=== PATIENT | female | born 1965 ===

== ENCOUNTER 2020-07-08 16:47 | Outpatient (REF) | payer MEDICAID, SELFPAY | END 2020-07-08 16:48 | disposition home or self-care (01) | LOC: HO.SCI 16:47 | PROVIDERS: Visit Provider Internal Medicine | DX: Z13.89 Encounter for screening for other disorder (principal) ==

== ENCOUNTER 2021-06-16 13:48 | Outpatient (REF) | payer MEDICAID, SELFPAY ==
--- NOTE | ~2021-06-16 | MM_ITS ---
EXAMINATION: MM DIAGNOSTIC DIGITAL BREAST TOMOSYNTHESIS, BILATERAL US DIAGNOSTIC ULTRASOUND BREAST, LEFT CLINICAL INFORMATION: Pain lower left breast near inframammary fold. Also ridge of hardness sensed by patient in this area. Age 56. Prior outside imaging from the arch date currently unavailable. No known family history breast cancer. The lifetime risk of breast cancer based on the Tyrer-Cuzick Model is 5%. COMPARISON: None. TECHNIQUE: Digital breast tomosynthesis is performed in both the craniocaudal and mediolateral oblique views along with computer-aided detection (CAD). Synthesized 2D images are generated from the tomosynthesis. Ultrasound left breast is targeted to the area of clinical concern posterior inferior and inferior medial left breast. Patient is able to point to the area of concern at time of imaging. Grayscale imaging and color Doppler are performed without and with harmonics. FINDINGS: The breasts are heterogeneously dense, which may obscure small masses (ACR BI-RADS breast composition Category c). There are no significant masses, abnormal calcifications, or other abnormalities. There is no skin thickening or coarsening of the Myron's ligaments. The inframammary fold is unremarkable. The axilla are unremarkable. Ultrasound demonstrates no cystic or solid mass or architectural abnormality. No skin thickening or edema tracking in soft tissue planes. No hyperemia. No focal duct ectasia. Results are discussed with the patient at time of visit with assistance of an mechanical applications engineer. If prior out of state mammography is made available, we will be able to make comparison in an addendum report. If clinically indicated, further evaluation may be considered with surgical consult. MM/MM tomosynthesis diagnostic BI IMPRESSION: No mammographic evidence of malignancy or inflammatory changes. Unremarkable targeted left breast ultrasound. ASSESSMENT: BI-RADS 1: Negative RECOMMENDATION: 1. Patient should be managed based on the clinical impression. If clinically indicated, further evaluation may be considered with surgical consult. Decision to proceed with biopsy should be based on clinical grounds and degree of clinical concern. 2. Radiology department staff will attempt to retrieve prior [id number] mammography to allow for comparison in an addendum report. 3. Otherwise, routine annual screening mammography. This patient's information was entered into a reminder system with a target due date for their next mammogram.
== END 2021-06-16 13:49 | disposition home or self-care (01) ==
LOC: HO.MAMMO 13:48
PROVIDERS: Visit Provider Advanced Practice Midwife
DX: N64.4 Mastodynia (principal)
CPT/HCPCS: 76642; 77062; 77066

== ENCOUNTER → 2021-11-25 14:25 | Outpatient (BNVA) | payer MEDICAID, SELFPAY | PROVIDERS: PCP Internal Medicine; Visit Provider Nurse Practitioner Family | DX: Z12.11 Encounter for screening for malignant neoplasm of colon (principal) | CPT/HCPCS: 99202 ==

== ENCOUNTER 2022-02-02 08:50 | Outpatient (REF) | payer MEDICAID, SELFPAY ==
--- NOTE | 2022-02-02 08:56 | EMG_ITS ---
Bilateral median and ulnar motor and sensory studies were performed. Bilateral radial sensory studies were performed and paraspinal muscles were tested with a needle. IMPRESSION: 1. 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 2. Mild bilateral ulnar neuropathy across cubital tunnel. MD DOMENICO Chavira/ALINE / [phone]
== END 2022-02-02 08:51 | disposition home or self-care (01) ==
LOC: HO.NEURO 08:50
PROVIDERS: PCP Internal Medicine; Visit Provider Internal Medicine
DX: G56.03 Carpal tunnel syndrome, bilateral upper limbs (principal)
CPT/HCPCS: 95886; 95911

== ENCOUNTER → 2022-06-20 14:45 | Outpatient (BNVA) | payer MEDICAID, SELFPAY | PROVIDERS: PCP Internal Medicine; Visit Provider Orthopaedic Surgery | DX: G56.03 Carpal tunnel syndrome, bilateral upper limbs (principal); G56.23 Lesion of ulnar nerve, bilateral upper limbs | CPT/HCPCS: 99202 ==

== ENCOUNTER 2022-09-25 10:02 | Outpatient (REF) | payer MEDICAID, SELFPAY ==
[2022-09-25 14:29] LABS: MANUAL DIFF FLAG NO
[2022-09-25 14:30] LABS: Basophils Percent Auto 0.4 % (0-2); Eosinophils Absolute Auto 0.1 X10*3/uL (0.0-0.4); Eosinophils Percent Auto 0.8 % (0-4); Hematocrit 41.4 % (37.0-47.0); Hemoglobin 13.7 g/dl (12.0-16.0); Imm Gran Abs Auto 0.03 X10*3/uL (0.00-0.03); Imm Gran Pct Auto 0.4 % (0.0-0.4); Lymphocytes Absolute Auto 1.9 X10*3/uL (1.2-4.9); Lymphocytes Percent Auto 21.8 % (20-40); Mean Corpuscular HGB Conc 33.1 g/dl (31.0-35.0); Mean Corpuscular Hemoglobin 31.3 pg (27.0-33.0); Mean Corpuscular Volume 94.5 fL (80.0-98.0); Mean Platelet Volume 11.8 fL (9.4-12.3); Monocytes Absolute Auto 0.3 X10*3/uL (0.1-1.2); Monocytes Percent Auto 3.3 % (2-11); Neutrophils Absolute Auto 6.3 x10*3/uL (2.0-8.3); Neutrophils Percent Auto 73.3 % (45-73); Platelet Count 199 X10*3/uL (160-400); Red Blood Count 4.38 X10*6/uL (4.20-5.50); Red Cell Distribution Width 13.1 % (11.0-16.0); White Blood Count 8.6 X10*3/uL (4.8-10.8)
[2022-09-25 14:45] LABS: Estimated Average Glucose 111 mg/dL; Hemoglobin A1c % 5.5 %
[2022-09-25 15:39] LABS: Alanine Aminotransferase 25 U/L (0-31); Albumin Level 4.5 g/dL (3.5-5.0); Alkaline Phosphatase 89 U/L (39-117); Anion Gap 18 (12-20); Aspartate Amino Transferase 23 U/L (5-31); Bilirubin Total 0.3 mg/dL (0.0-1.0); Blood Urea Nitrogen 32 mg/dL (9-16); Calcium 10.2 mg/dL (8.4-10.2); Carbon Dioxide 23 mmol/L (22-29); Chloride 105 mmol/L (96-108); Cholesterol 157 mg/dL; Estimated Glomerular Filt Rate 50; Glucose Fasting 101 mg/dL (60-99); HDL Cholesterol 55 mg/dL; LDL Cholesterol Calculated 87 mg/dl; Potassium 4.9 mmol/L (3.3-5.1); Sodium 141 mmol/L (135-145); Total Protein 7.6 g/dL (6.5-8.0); Triglycerides 76 mg/dL
[2022-09-25 15:53] LABS: TSH reflex Free T4 1.45 uIU/mL (0.32-4.0)
[2022-09-26 04:13] LABS: ~HepC Num1 0.09 S/CO (0.00-0.79); ~Hepatitis C Antibody Nonreactive (Nonreactive)
[2022-09-27 17:24] LABS: HIV RNA PCR Qn Copies Not Detected Copies/mL; HIV RNA PCR Qn Log Copies Not Detected Log cps/mL
[2022-10-03 11:58] LABS: Plasma Renin Activity 1.89 ng/mL/h (0.25-5.82)
== END 2022-09-25 10:03 | disposition home or self-care (01) ==
LOC: HO.CHCLDS 10:02
PROVIDERS: PCP Internal Medicine; Referring Provider Internal Medicine; Visit Provider Family Medicine
DX: I10 Essential (primary) hypertension (principal); E78.2 Mixed hyperlipidemia
CPT/HCPCS: 36415; 80053; 80061; 82088; 83036; 84443; 85025; 86803; 87536; 87900

== ENCOUNTER 2023-04-10 09:25 | Outpatient (AMB) | payer MEDICAID, SELFPAY ==
--- NOTE | 2023-04-10 09:59 | A.OFFVIS_ITS ---
Intake Vital Signs 04/10/23 10:05 Height 5 ft 4 in Weight 164 lb BMI 28.1 Intake Visit Reasons: Carpal tunnel syndrome, B/L upper limbs Intake Note: Brii 58 yr old female presents today for to discuss surgery for her left hand. States she was suppose to have CTR last year but canceled due to work. Currently state she is not working and would like to have surgery. Also states she is having locking of her left middle finger and would like to have trigger release as well. Allergies aspirin Allergy (Severe, Verified 04/10/23 10:05) Facial Swelling pencillian Allergy (Severe, Uncoded 04/10/23 10:05) Hives HPI Carpal tunnel syndrome, B/L upper limbs HPI Details Brii is a 58 year old right hand dominant Citizen Of [place] speaking woman who returns to discuss her bilateral carpal tunnel syndrome, as well as new complaint of left middle finger locking. She was initially scheduled for a carpal tunnel release last year, but cancelled this due to work. She says she is no longer working at [employer] and would like to discuss surgery. She complains of dense numbness in the median nerve distribution bilaterally, with normal sensation to the small fingers bilaterally. She says her numbness is worse at night and wakes her up, along with some pain and stiffness. She has a Hx of previous blood clots sometime last year, following a meniscus repair surgery. She says she cannot take aspirin and was not given any other medication following her surgery to prevent clots. [facility]LY [facility] Surgical History Hx of left knee surgery Hx of section Family History Mother HTN (hypertension) Diabetes Father Diabetes HTN (hypertension) Social History Household Members: Family Alcohol intake: current Patient Tobacco Use Status: Former Tobacco user Current occupational status: employed Current occupation: [employer]/right hand Review of Systems Const All systems reviewed & are unremarkable except as noted in HPI and below Physical Exam Vital Signs: BMI result Body Mass Index 28.1 Const General: no acute distress and alert Orientation/consciousness: patient oriented x3 Neuro General: patient oriented x3 Extrem Other: Evaluation of Left Upper Extremity: The patient is alert, oriented, and in no acute distress Neuro: Dense numbness in the median nerve distribution. Normal sensation in the ulnar nerve distribution. No thenar or intrinsic wasting Weak APB muscle belly firing on the left, but present Vascular: Cap refill brisk ROM: She can make a fist and extend all her digits Visible and palpable locking & catching of the left middle finger Tender over the a1 frida of the left middle finger Nerve Conduction study: IMPRESSION:? 1. 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 2. Mild bilateral ulnar neuropathy across cubital tunnel. Kellen Em MD 02/02/2022 Psych Appearance: grossly normal Affect: normal affect Attitude: cooperative Assessment & Plan Assessment & Plan (1) Carpal tunnel syndrome of right wrist: Code(s): G56.01 - Carpal tunnel syndrome, right upper limb (2) Carpal tunnel syndrome of left wrist: Code(s): G56.02 - Carpal tunnel syndrome, left upper limb (3) Cubital tunnel syndrome on right: Code(s): G56.21 - Lesion of ulnar nerve, right upper limb (4) Cubital tunnel syndrome on left: Code(s): G56.22 - Lesion of ulnar nerve, left upper limb (5) Trigger finger, left middle finger: Code(s): M65.332 - Trigger finger, left middle finger Plan Assessment & Plan: 1. Left Carpal tunnel syndrome, severe With dense numbness, symptoms worse at night 2. Left middle finger trigger finger I educated her about these conditions I discussed treatment options I recommend surgery, and she is in agreement The risks and benefits of operative treatment were discussed with the patient and the patient wishes to proceed with surgery. These risks include, but are not limited to risk of damage to blood vessels, nerves, tendons, infection, recurrence, incomplete relief of preoperative symptoms, persistent pain, possible need for further surgery and the risks associated with regional blocks and anesthesia. The plan is to take the patient to the operating room sometime in the next few weeks for the following procedures: 1. Left carpal tunnel release, under local 1. Left middle finger trigger release, under local All of the preoperative paperwork including the consent was filled out today. All the patient's questions were answered. The patient understands that they will be contacted by our production scheduler soon to schedule this procedure She denies Diabetes, blood thinners, asthma, heart, lung, kidney issues She says she has a Hx of previous blood clots, and used to take Eliquis, but she is no longer on any blood thinner medication 3. Right Carpal tunnel syndrome, severe With dense numbness, symptoms worse at night She can follow up to discuss treatment for her right side at her first post-op appointment. 4. Right Cubital tunnel syndrome, mild 5. Left Cubital tunnel syndrome, mild Normal sensation in the ulnar nerve distribution today No complaints of numbness in the small fingers I educated her about this issue. This will be managed conservatively for now. Scribed for Rose Douglas MD by Kenrick Sharpe, medical certification specialist, on 04/10/23 at 10:30 AM, EST. Coding Level of Care Code Est Pt Level 4 (87018) Diagnoses Carpal tunnel syndrome of right wrist G56.01 Carpal tunnel syndrome of left wrist G56.02 Cubital tunnel syndrome on right G56.21 Cubital tunnel syndrome on left G56.22 Trigger finger, left middle finger M65.332
[2023-04-10 10:05] VITALS: BMI 28.1
== END 2023-04-10 10:41 | disposition home or self-care (01) ==
PROVIDERS: PCP Internal Medicine; Visit Provider Orthopaedic Surgery
DX: G56.03 Carpal tunnel syndrome, bilateral upper limbs (principal); G56.23 Lesion of ulnar nerve, bilateral upper limbs; M65.332 Trigger finger, left middle finger
CPT/HCPCS: 99214

== ENCOUNTER → 2023-04-10 09:25 | Outpatient (BNVA) | payer MEDICAID, SELFPAY | PROVIDERS: PCP Internal Medicine; Visit Provider Orthopaedic Surgery | DX: G56.03 Carpal tunnel syndrome, bilateral upper limbs (principal); G56.23 Lesion of ulnar nerve, bilateral upper limbs; M65.332 Trigger finger, left middle finger | CPT/HCPCS: 99212 ==

== ENCOUNTER 2023-05-15 11:42 | Outpatient (REF) | payer MEDICAID, SELFPAY ==
--- NOTE | ~2023-05-15 | MM_ITS ---
EXAMINATION: MM SCREENING DIGITAL BREAST TOMOSYNTHESIS, BILATERAL CLINICAL INFORMATION: Screening. Asymptomatic. COMPARISON: Mammography: This study is compared with prior exams dating back to 2021. TECHNIQUE: Digital breast tomosynthesis is performed in both the craniocaudal and mediolateral oblique views along with computer-aided detection (CAD). Synthesized 2D images are generated from the tomosynthesis. FINDINGS: The breasts are heterogeneously dense, which may obscure small masses (ACR BI-RADS breast composition Category c). There are no significant masses, abnormal calcifications, or other abnormalities. MM/MM tomosynthesis screening BI IMPRESSION: No mammographic evidence of malignancy. ASSESSMENT: BI-RADS BI-RADS 1 - Negative RECOMMENDATION: Routine annual mammography screening. 1 year F/U This examination should not preclude the clinical evaluation of a suspicious palpable abnormality. This patient's information was entered into a reminder system with a target due date for their next mammogram.
== END 2023-05-15 11:43 | disposition home or self-care (01) ==
LOC: HO.MAMMO 11:42
PROVIDERS: PCP Internal Medicine; Visit Provider Internal Medicine
DX: Z12.31 Encounter for screening mammogram for malignant neoplasm of breast (principal)
CPT/HCPCS: 77063; 77067

== ENCOUNTER → 2023-05-15 12:00 | Outpatient (BNV) | payer MEDICAID, SELFPAY | PROVIDERS: PCP Internal Medicine; Visit Provider Radiology Diagnostic Radiology | DX: Z12.31 Encounter for screening mammogram for malignant neoplasm of breast (principal) | CPT/HCPCS: 77063; 77067 ==

== ENCOUNTER 2023-06-18 06:32 | Day surgery (SDC) | payer MEDICAID, SELFPAY ==
[2023-06-18 06:49] VITALS: BMI 29.2
[2023-06-18 07:01] VITALS: BP 139/67; PULSE 63; RESP 18; TEMP 36.2; O2SAT 97
--- NOTE | 2023-06-18 07:58 | MHC.SHP ---
Pre-Procedural Eval Section A - 24 Hr Update-Section A only Date of Service: 06/18/23 Section B - Complete if H&P > 30 days Chief Complaint: carpal tunnel release,trigger finger release Allergies: Allergies Allergy/AdvReac Type Severity Reaction Status Date / Time aspirin Allergy Severe Facial Verified 04/10/23 10:05 Swelling pencillian Allergy Severe Hives Uncoded 04/10/23 10:05 Exam Exam Comment: Left carpal tunnel syndrome and left middle finger trigger finger Plan Diagnosis/Plan: Unchanged I have reviewed the history and physical and performed a pertinent physical examination on my patient. No changes have occurred unless specified. Time Spent With Patient Time: Total time managing care of this patient today ____ minutes.
--- NOTE | 2023-06-18 07:59 | W.PM.OPN ---
Operative Note Operative Note Date of Service: 06/18/23 Narrative: Preop diagnosis: 1. Left Carpal tunnel syndrome 2. Left middle finger trigger finger Postop diagnosis: same Procedure: 1. Left Carpal tunnel release 2. Left middle finger A1 frida release Surgeon: Rose Douglas MD Anesthesia: local block using 1% lidocaine with epinephrine Findings: Thickened transverse carpal ligament. EBL: Less than 5 mL Specimens: None Complications: None Disposition: Brought to recovery room in stable condition Plan: Follow-up for 10-14 days for wound check and suture removal Indications: The patient is 58 years old, with left carpal tunnel syndrome and a left middle finger trigger finger that have been unresponsive to nonoperative management. The risks and benefits of operative treatment including but not limited to risk of damage to blood vessels, nerves, tendons, infection, persistent pain, persistent symptoms, or possible need for additional surgery were discussed with the patient and the patient wishes to proceed with surgery. Procedure: Once consent was obtained a local block was performed using a combination of 1% lidocaine with epinephrine. The patient was then brought back to the operating suite and placed on the operative table in supine position. The left upper extremity was prepped and draped in a standard surgical fashion. Once assured that we had a good block, a 1.5 cm oblique incision was made centered over the A1 frida of the left middle finger . The incision was made through the skin to the subcutaneous tissues using a #15 blade. Careful dissection was made down to the level of the A1 frida using tenotomy scissors, with care being taken to protect the nearby neurovascular structures. A longitudinal incision was made in the A1 frida 1st using a #15 blade, then using tenotomy scissors under direct visualization. The A1 frida was noted to be thickened. Following our A1 frida release, we no longer saw any locking or catching of the digit with flexion and extension. Once assured that we had a good block, a 2.0 cm longitudinal incision was made centered over the left carpal tunnel. The incision was made through the skin to the subcutaneous tissues using a #15 blade. Dissection was made down to the level of the transverse carpal ligament with care being taken to protect the palmar cutaneous nerve. Once the transverse carpal ligament was clearly visualized, a longitudinal incision was made in the transverse carpal ligament 1st using a #15 blade, then using tenotomy scissors under direct visualization. Care was taken to look for and protect the motor branch of the median nerve when seen in this area. Once satisfied with our carpal tunnel release the wound was copiously irrigated with normal saline and hemostasis was obtained with a brief period of local pressure. The skin edges were reapproximated with some 5.0 nylon suture material and a sterile dressing was applied. The patient appears to have tolerated the procedure well and with no complications. All digits were well vascularized at the conclusion of the case.
[2023-06-18 09:56] VITALS: BP 144/86; PULSE 50; RESP 16; O2SAT 96
== END 2023-06-18 09:57 | disposition home or self-care (01) ==
PROVIDERS: PCP Internal Medicine; Visit Provider Orthopaedic Surgery
PROC: (CPT 64721; principal; 2023-06-18 09:10)
PROC: (CPT 26055; 2023-06-18 09:10)
DX: G56.02 Carpal tunnel syndrome, left upper limb (principal); M65.332 Trigger finger, left middle finger; Z88.0 Allergy status to penicillin; Z88.8 Allergy status to other drugs, medicaments and biological substances; R20.0 Anesthesia of skin; Z98.890 Other specified postprocedural states; Z87.891 Personal history of nicotine dependence
CPT/HCPCS: 64721; 26055; J0171

== ENCOUNTER → 2023-06-18 06:32 | Outpatient (BNV) | payer MEDICAID, SELFPAY | PROVIDERS: PCP Internal Medicine; Visit Provider Orthopaedic Surgery | DX: G56.02 Carpal tunnel syndrome, left upper limb (principal); M65.332 Trigger finger, left middle finger | CPT/HCPCS: 26055; 64721 ==

== ENCOUNTER 2023-07-03 10:57 | Outpatient (REF) | payer MEDICAID, SELFPAY ==
[2023-07-03 15:20] LABS: Alanine Aminotransferase 30 U/L (0-31); Albumin Level 4.2 g/dL (3.5-5.0); Alkaline Phosphatase 115 U/L (39-117); Anion Gap 14 (12-20); Aspartate Amino Transferase 25 U/L (5-31); Bilirubin Total 0.2 mg/dL (0.0-1.0); Blood Urea Nitrogen 28 mg/dL (9-16); Calcium 9.9 mg/dL (8.4-10.2); Carbon Dioxide 24 mmol/L (22-29); Chloride 106 mmol/L (96-108); Cholesterol 201 mg/dL (<200); Estimated Glomerular Filt Rate 45; Glucose Random 106 mg/dL (60-115); HDL Cholesterol 50 mg/dL (>40); LDL Cholesterol Calculated 121 mg/dL (<100); Potassium 4.3 mmol/L (3.3-5.1); Sodium 140 mmol/L (135-145); Total Protein 7.5 g/dL (6.5-8.0); Triglycerides 153 mg/dL (<150)
== END 2023-07-03 10:58 | disposition home or self-care (01) ==
LOC: HO.CHCLDS 10:57
PROVIDERS: Visit Provider Internal Medicine
DX: I10 Essential (primary) hypertension (principal); E78.2 Mixed hyperlipidemia; G56.01 Carpal tunnel syndrome, right upper limb; G56.21 Lesion of ulnar nerve, right upper limb; Z98.890 Other specified postprocedural states; Z86.69 Personal history of other diseases of the nervous system and sense organs; Z87.39 Personal history of other diseases of the musculoskeletal system and connective tissue
CPT/HCPCS: 36415; 80053; 80061; 99212

== ENCOUNTER 2023-07-03 11:19 | Outpatient (AMB) | payer MEDICAID, SELFPAY ==
--- NOTE | 2023-07-03 11:33 | A.OFFVIS_ITS ---
Vital Signs 07/03/23 11:35 Height 5 ft 4 in Weight 160 lb BMI 27.5 Handedness Left Intake Visit Reasons: PO-Lt CTR, Lt MF Trigger 06/18/23 Intake Note: Brii ia a 58 year old female who presents today for her PO visit of left CTR & left MF Trigger 06/18/23. States CTS have improved and her finger is no longer locking. She is unable to make a full closed fist due to limited ROM. Mild swelling and discomfort but doing well over all. Allergies aspirin Allergy (Severe, Verified 04/10/23 10:05) Facial Swelling Penicillins Allergy (Intermediate, Verified 07/03/23 11:36) Hives pencillian Allergy (Severe, Uncoded 04/10/23 10:05) Hives HPI HPI PO-Lt CTR, Lt MF Trigger 06/18/23: Details: Brii is a 58 year old right hand dominant Romans[place] speaking woman who returns S/P left carpal tunnel release & left middle finger trigger release, DOS: 06/18/23. She says she is doing well, her sensation is normal and she no longer has any locking or catching. She continues to have dense numbness in the right median nerve distribution. Normal sensation to the small fingers bilaterally. PFSH Surgical History Hx of left knee surgery Hx of section Family History Mother HTN (hypertension) Diabetes Father Diabetes HTN (hypertension) Social History Household Members: Family Alcohol intake: current Comment: counts correct Patient Tobacco Use Status: Former Tobacco user Current occupational status: employed Current occupation: [employer]/right hand Review of Systems Const All systems reviewed & are unremarkable except as noted in HPI and below Physical Exam Vital Signs: BMI result Body Mass Index 27.5 Const General: no acute distress and alert Orientation/consciousness: patient oriented x3 Neuro General: patient oriented x3 Extrem Other: The patient was alert oriented and in no acute distress The incision is healing well with no erythema drainage or evidence of infection. Sutures removed and Steri-Strips applied She can make a fist and extend all her digits No locking or catching She reports more normal sensation in the median nerve distribution of her left hand following her carpal tunnel release. Regarding her right hand: Dense numbness in the right median nerve distribution Normal sensation in the ulnar nerve distribution bilaterally Cap refill is brisk Nerve Conduction study: IMPRESSION:? 1. 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 2. Mild bilateral ulnar neuropathy across cubital tunnel. Kellen Em MD 02/02/2022 Psych Appearance: grossly normal Affect: normal affect Attitude: cooperative Assessment & Plan Assessment & Plan (1) Carpal tunnel syndrome of right wrist: Code(s): G56.01 - Carpal tunnel syndrome, right upper limb Category: Medical (2) Carpal tunnel syndrome of left wrist: Code(s): G56.02 - Carpal tunnel syndrome, left upper limb Category: Medical (3) Cubital tunnel syndrome on right: Code(s): G56.21 - Lesion of ulnar nerve, right upper limb Category: Medical (4) Cubital tunnel syndrome on left: Code(s): G56.22 - Lesion of ulnar nerve, left upper limb Category: Medical (5) Trigger finger, left middle finger: Code(s): M65.332 - Trigger finger, left middle finger Category: Medical Plan Assessment & Plan: 1. Left Carpal tunnel syndrome, S/P release Pre-operatively with dense numbness, symptoms worse at night Now , she says with normal sensation 2. Left middle finger trigger finger, S/P release DOS: 06/18/23 The patient appears to be doing well post-operatively I educated her about the post-operative course I explained the signs and symptoms of infection, if the patient develops any new or worsening erythema, drainage, pain, or warmth they should contact the clinic or attend the ED. I discussed activity modifications, she is to lift nothing heavier than a cellphone for the next two weeks She will perform gentle ROM exercises at home She should avoid any underwater activities for the next 5 days She should gently massage about the incision site to reduce the risk of hypersensitivity 3. Right Carpal tunnel syndrome, severe With dense numbness, symptoms worse at night I educated her about this condition I discussed treatment options I recommend surgery, and she is in agreement The risks and benefits of operative treatment were discussed with the patient and the patient wishes to proceed with surgery. These risks include, but are not limited to risk of damage to blood vessels, nerves, tendons, infection, recurrence, incomplete relief of preoperative symptoms, persistent pain, possible need for further surgery and the risks associated with regional blocks and anesthesia. The plan is to take the patient to the operating room sometime in the next few weeks for the following procedures: 1. Right carpal tunnel release, under local All of the preoperative paperwork including the consent was filled out today. All the patient's questions were answered. The patient understands that they will be contacted by our supervisor rework soon to schedule this procedure She denies Diabetes, blood thinners, asthma, heart, lung, kidney issues She says she has a Hx of previous blood clots, and used to take Eliquis, but she is no longer on any blood thinner medication 4. Right Cubital tunnel syndrome, mild 5. Left Cubital tunnel syndrome, mild Normal sensation in the ulnar nerve distribution today No complaints of numbness in the small fingers I educated her about this issue. This will be managed conservatively for now. Scribed for Rose Douglas MD by Kenrick Sharpe adjunct faculty for medical terminology, on 07/03/23 at 11:45 AM, EST. Scribe Plan - Not visible on output: Scribed for Rose Douglas MD by Kenrick Sharpe adjunct faculty for medical terminology, on [ ] at [ ], EST. Coding Level of Care Code Est Pt Level 4 (88850) Diagnoses Carpal tunnel syndrome of right wrist G56.01 Carpal tunnel syndrome of left wrist G56.02 Cubital tunnel syndrome on right G56.21 Cubital tunnel syndrome on left G56.22 Trigger finger, left middle finger M65.332
[2023-07-03 11:35] VITALS: BMI 27.5
== END 2023-07-03 11:55 | disposition home or self-care (01) ==
PROVIDERS: PCP Internal Medicine; Visit Provider Orthopaedic Surgery
DX: G56.03 Carpal tunnel syndrome, bilateral upper limbs (principal); G56.23 Lesion of ulnar nerve, bilateral upper limbs; M65.332 Trigger finger, left middle finger
CPT/HCPCS: 99214

== ENCOUNTER 2023-08-27 08:07 | Day surgery (SDC) | payer MEDICAID, SELFPAY ==
[2023-08-27 09:20] VITALS: BMI 28.0
--- NOTE | 2023-08-27 10:56 | MHC.SHP ---
Pre-Procedural Eval Section A - 24 Hr Update-Section A only Date of Service: 08/27/23 The patient is an INPATIENT: No Changes since office visit: No Cold of Flu in the past 2 weeks, No New Medical Problems, No Changes in Medication and No Patient answered all questions The patient has been examined within 24 hours of the surgical procedure. The History & Physical has been completed within 30 days and I have reviewed it.: Yes Section B - Complete if H&P > 30 days Chief Complaint: Carpal tunnel syndrome, right upper limb Allergies: Allergies Allergy/AdvReac Type Severity Reaction Status Date / Time aspirin Allergy Severe Facial Verified 04/10/23 10:05 Swelling Penicillins Allergy Intermediate Hives Verified 07/03/23 11:36 pencillian Allergy Severe Hives Uncoded 04/10/23 10:05 Plan Diagnosis/Plan: Unchanged I have reviewed the history and physical and performed a pertinent physical examination on my patient. No changes have occurred unless specified. Time Spent With Patient Time: Total time managing care of this patient today ____ minutes.
--- NOTE | 2023-08-27 10:57 | W.PM.OPN ---
Operative Note Operative Note Date of Service: 08/27/23 Narrative: Preop diagnosis: 1. Right Carpal tunnel syndrome Postop diagnosis: same Procedure: 1. Right Carpal tunnel release Surgeon: Rose Douglas MD Anesthesia: local block using 1% lidocaine with epinephrine Findings: Thickened transverse carpal ligament. EBL: Less than 5 mL Specimens: None Complications: None Disposition: Brought to recovery room in stable condition Plan: Follow-up for 10-14 days for wound check and suture removal Indications: The patient is 58 years old, with right carpal tunnel syndrome that has been unresponsive to nonoperative management. The risks and benefits of operative treatment including but not limited to risk of damage to blood vessels, nerves, tendons, infection, persistent pain, persistent symptoms, or possible need for additional surgery were discussed with the patient and the patient wishes to proceed with surgery. Procedure: Once consent was obtained a local block was performed using a combination of 1% lidocaine with epinephrine. The patient was then brought back to the operating suite and placed on the operative table in supine position. The right upper extremity was prepped and draped in a standard surgical fashion. Once assured that we had a good block, a 2.0 cm longitudinal incision was made centered over the carpal tunnel. The incision was made through the skin to the subcutaneous tissues using a #15 blade. Dissection was made down to the level of the transverse carpal ligament with care being taken to protect the palmar cutaneous nerve. Once the transverse carpal ligament was clearly visualized, a longitudinal incision was made in the transverse carpal ligament 1st using a #15 blade, then using tenotomy scissors under direct visualization. Care was taken to look for and protect the motor branch of the median nerve when seen in this area. Once satisfied with our carpal tunnel release the wound was copiously irrigated with normal saline and hemostasis was obtained with a brief period of local pressure. The skin edges were reapproximated with some 5.0 nylon suture material and a sterile dressing was applied. The patient appears to have tolerated the procedure well and with no complications. All digits were well vascularized at the conclusion of the case.
[2023-08-27 12:13] VITALS: BP 132/75; PULSE 59; RESP 17; O2SAT 97
== END 2023-08-27 12:14 | disposition home or self-care (01) ==
PROVIDERS: PCP Internal Medicine; Visit Provider Orthopaedic Surgery
PROC: (CPT 64721; principal; 2023-08-27 09:40)
DX: G56.01 Carpal tunnel syndrome, right upper limb (principal); R20.0 Anesthesia of skin; Z79.899 Other long term (current) drug therapy; Z88.0 Allergy status to penicillin; Z88.1 Allergy status to other antibiotic agents; Z87.891 Personal history of nicotine dependence
CPT/HCPCS: 64721; J0171

== ENCOUNTER → 2023-08-27 08:07 | Outpatient (BNV) | payer MEDICAID, SELFPAY | PROVIDERS: PCP Internal Medicine; Visit Provider Orthopaedic Surgery | DX: G56.01 Carpal tunnel syndrome, right upper limb (principal) | CPT/HCPCS: 64721 ==

== ENCOUNTER 2023-09-12 14:31 | Outpatient (AMB) | payer MEDICAID, SELFPAY ==
--- NOTE | 2023-09-12 14:37 | MHC.OFFVIS ---
Vital Signs 09/12/23 14:40 Height 5 ft 4 in Weight 165 lb BMI 28.3 Handedness Right Intake Visit Reasons: PO RT CTR 08/27/23 AR Intake Note: Brii is a 58 year old right hand dominant female who presents today post operatively S/P Right Carpal Tunnel Release 08/27/23 w AR. Patient reports she no longer has numbness and tingling. She expressed intermittent pain around her incision. She has been cleaning the site daily with antiseptic spray and antibiotic ointment. Sutures have been removed and steri-strips applied. Allergies aspirin Allergy (Severe, Verified 04/10/23 10:05) Facial Swelling Penicillins Allergy (Intermediate, Verified 07/03/23 11:36) Hives pencillian Allergy (Severe, Uncoded 04/10/23 10:05) Hives HPI HPI PO RT CTR 08/27/23 AR: Details: Brii is a 58 year old right hand dominant Tajik speaking woman who returns S/P right carpal tunnel release, DOS: 08/27/23. She says she is doing well, her sensation is now normal. She reports some discomfort about her incision, and she has been cleaning it daily. She has normal sensation in her left median nerve distribution and bilateral small fingers. PFSH Surgical History Hx of left knee surgery Hx of section Family History Mother HTN (hypertension) Diabetes Father Diabetes HTN (hypertension) Social History Household Members: Family Alcohol intake: current Comment: counts correct Patient Tobacco Use Status: Former Tobacco user Current occupational status: employed Current occupation: [employer]/right hand Review of Systems Const All systems reviewed & are unremarkable except as noted in HPI and below Physical Exam Vital Signs: BMI result Body Mass Index 28.3 Const General: no acute distress and alert Orientation/consciousness: patient oriented x3 Neuro General: patient oriented x3 Extrem Other: The patient was alert oriented and in no acute distress The incision is healing well with no erythema drainage or evidence of infection. Sutures removed and Steri-Strips applied She can make a fist and extend all her digits No locking or catching Normal sensation in the right median nerve distribution Normal sensation in the ulnar nerve distribution bilaterally Cap refill is brisk Nerve Conduction study: IMPRESSION:? 1. 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 2. Mild bilateral ulnar neuropathy across cubital tunnel. Kellen Em MD 02/02/2022 Psych Appearance: grossly normal Affect: normal affect Attitude: cooperative Assessment & Plan Assessment & Plan (1) Carpal tunnel syndrome of right wrist: Code(s): G56.01 - Carpal tunnel syndrome, right upper limb Category: Medical (2) Carpal tunnel syndrome of left wrist: Code(s): G56.02 - Carpal tunnel syndrome, left upper limb Category: Medical (3) Cubital tunnel syndrome on right: Code(s): G56.21 - Lesion of ulnar nerve, right upper limb Category: Medical (4) Cubital tunnel syndrome on left: Code(s): G56.22 - Lesion of ulnar nerve, left upper limb Category: Medical (5) Trigger finger, left middle finger: Code(s): M65.332 - Trigger finger, left middle finger Category: Medical Plan Assessment & Plan: 1. Right Carpal tunnel syndrome, severe Date of surgery 08/27/2023 Pre-operatively with dense numbness, symptoms worse at night Now with normal sensation The patient appears to be doing well post-operatively I educated her about the post-operative course I explained the signs and symptoms of infection, if the patient develops any new or worsening erythema, drainage, pain, or warmth they should contact the clinic or attend the ED. I discussed activity modifications, she is to lift nothing heavier than a cellphone for the next two weeks She will perform gentle ROM exercises at home She should avoid any underwater activities for the next 5 days She should gently massage about the incision site to reduce the risk of hypersensitivity She can follow up prn 2. Left Carpal tunnel syndrome, S/P release Date of surgery 06/18/2023 Pre-operatively with dense numbness, symptoms worse at night Now with normal sensation 3. Left middle finger trigger finger, S/P release DOS: 06/18/23 Doing well, no complaints 4. Right Cubital tunnel syndrome, mild 5. Left Cubital tunnel syndrome, mild Normal sensation in the ulnar nerve distribution today No complaints of numbness in the small fingers I educated her about this issue. This will be managed conservatively for now. Scribed for HARVEY Argueta by Kenrick Sharpe, anesthesiology medical doctor, on 09/12/23 at 2:45 PM, EST. Coding Level of Care Code Global (37405) Diagnoses Carpal tunnel syndrome of right wrist G56.01 Carpal tunnel syndrome of left wrist G56.02 Cubital tunnel syndrome on right G56.21 Cubital tunnel syndrome on left G56.22 Trigger finger, left middle finger M65.332
[2023-09-12 14:40] VITALS: BMI 28.3
== END 2023-09-12 14:50 | disposition home or self-care (01) ==
PROVIDERS: PCP Internal Medicine
DX: G56.03 Carpal tunnel syndrome, bilateral upper limbs (principal); G56.23 Lesion of ulnar nerve, bilateral upper limbs; M65.332 Trigger finger, left middle finger
CPT/HCPCS: 99024

== ENCOUNTER → 2023-09-12 14:31 | Outpatient (BNVA) | payer MEDICAID, SELFPAY | PROVIDERS: PCP Internal Medicine | DX: Z48.811 Encounter for surgical aftercare following surgery on the nervous system (principal) | CPT/HCPCS: 99212 ==

== ENCOUNTER 2023-11-27 16:29 | Outpatient (REF) | payer MEDICAID, SELFPAY ==
--- NOTE | ~2023-11-27 | CT_ITS ---
EXAMINATION: CT HEAD WITHOUT CONTRAST CLINICAL INFORMATION: Headache/right thigh pain COMPARISON: None available. TECHNIQUE: Contiguous axial imaging was performed from the skull base to vertex without intravenous administration of contrast. This CT examination was performed using dose optimization techniques as appropriate, variously including the following: *Automated exposure control *Adjustment of mA and/or kV according to patient size (this includes techniques or standardized protocols for targeted exams where dose is matched to indication/reason for exam; i.e. extremities or head) *Use of iterative reconstruction technique DLP: 733 mGy-cm FINDINGS: No acute intracranial hemorrhage or infarct. The torres-white matter differentiation is preserved. No midline shift or hydrocephalus. No acute extra-axial fluid collections. The osseous structures are unremarkable. No orbital pathology. The paranasal sinuses and mastoid air cells are clear. Atherosclerotic calcifications of the bilateral carotid siphons. CT/CT head/brain wo IV con IMPRESSION: No acute intracranial pathology. Electronically signed by: Ruy Mathur MD 01/18/2024 03:28 PM MAE
== END 2023-11-27 16:30 | disposition home or self-care (01) ==
LOC: HO.CT 16:29
PROVIDERS: PCP Internal Medicine; Visit Provider Internal Medicine
DX: G43.009 Migraine without aura, not intractable, without status migrainosus (principal)
CPT/HCPCS: 70450

== ENCOUNTER 2024-04-16 12:44 | Outpatient (REF) | payer MEDICAID, SELFPAY ==
--- OUTSIDE RECORDS SUMMARY | 2024-04-16 13:00 | XMS_ITS | Encounter Summary ---
Author Organization [employer] Address [address] [facility] 7 [place] [address] Care Team Providers Care Conference Specialist Name Role Phone Darshan Bell MD Primary Care Prov ider Encounter Details Date Type Department Care Team (Late Contact Info) Description 03/03/2022 Orders Only [facility] MEDICINE [address] [place], [place] [id number] Darshan Bell MD [address] [place] [address] Bilateral carpal tunnel syndrome (Primary Dx) Social History Tobacco Use Types Packs/Day Years Used Date Smoking Tobacco: Never Assessed Comments Unknown Sex and Gender Information Value Date Recorded Sex Assigned at Female 12/26/2021 10:37 AM EDT Legal Sex Female 10:37 AM EDT Gender Identity Female 12/26/2021 10:37 AM EDT Sexual Orientation Straight 12/26/2021 10 :37 AM EDT documented as of this encounter Plan of Treatment Upcoming Encounters Date Type Department Care Team (Late Contact Info) Description 05/12/2024 2:15 PM EDT Office Visit [facility] MED & PEDS [address] [place] [address] Darshan Bell MD [address] [place] [address] 05/13/2024 11:15 AM EDT Office Visit [facility] PEDS [address] [place] [address] Isabella Choe MD [address] [place] [address] documented as of this encounter Visit Diagnoses Diagnosis Bilateral carpal tunnel syndrome- Primary Carpal tunnel syndrome documented in this encounter Care Teams Conference Specialist Relationship Specialty Start Date End Date Darshan Bell MD [address] [place] [address] PCP - General Internal Medicine 07/06/20 documented as of this encounter
--- OUTSIDE RECORDS SUMMARY | 2024-04-16 13:00 | XMS_ITS | Encounter Summary ---
Author Organization [employer] Address [address] [facility] 7 [place] [address] Care Team Providers Care Universal Grinder Set Up Operator Name Role Phone Darshan Bell MD Primary Care Prov ider Reason for Referral * Consultation (Routine) - Closed Specialty Diagnoses / Procedures Referred By Contac t Referred To Contact Dermatology / Family Medicine Diagnoses Atrophic spots of skin Darshan Bell MD [address] [place] [address] Phone: tel: fax: Isabella Choe MD [address] [place] [address] Phone: tel: fax: Referral ID Status Reason Start Date Expiration Date V isits Requested Visits Authorized [id number] Closed Consult and Treat 03/24/2024 03/24/2025 1 1 * Cardiology (Routine) - Authorized Specialty Diagnoses / Procedures Referred By Contac t Referred To Contact Cardiology Diagnoses Palpitation Procedures Holter monitor - 24 hour Darshan Bell MD [address] [place] [address] Phone: tel: fax: [address] Phone: tel: fax: Referral ID Status Reason Start Date Expiration Date V isits Requested Visits Authorized [id number] Authorized 03/24/2024 03/24/2025 1 1 * Consultation (Routine) - Closed Specialty Diagnoses / Procedures Referred By Contac t Referred To Contact Behavioral Health Diagnoses Severe episode of recurrent major depressive disorder, without psychotic features (CMS/HCC) Darshan Bell MD [address] [place] [address] Phone: tel: fax: Referral ID Status Reason Start Date Expiration Date V isits Requested Visits Authorized [id number] Closed Specialty Services Required 03/24/2024 03/24/2025 1 1 Encounter Details Date Type Department Care Team ([facility] Contact Info) Description 03/24/2024 11:15 AM EST Telemedicine [facility] MED & PEDS [address] [place] [address] Darshan Bell MD [address] [place] [address] Palpitation (Primary Dx); Primary hypertension; Severe episode of recurrent major depressive disorder, without psychotic features (CMS/HCC); Atrophic spots of skin Social History Tobacco Use Types Packs/Day Years Used Date Smoking Tobacco: Former Cigarettes 0.3 20 2 002 - 2021 Passive Smoke Exposure: Past Smokeless Tobacco: Never Alcohol Use Standard Drinks/Week Comments Not Currently 0 (1 standard drink = 0.6 oz pur e alcohol) Depression Answer Date Recorded Patient Health Questionnaire-9 Score 13 03/24/2024 Patient Health Questionnaire-9 Score 13 03/24/2024 Last PHQ-9: Questionnaire Data Not on file 0 03/24/2024 Housing Stability Answer Date Recorded What is your housing situation today? Not on rolly e 03/24/[address] you li ve. Do you have problems with any of the following? None of the above 03/24/2024 Food Insecurity Answer Date Recorded Within the past 12 months, y ou worried that your food would run out before you got money to buy more: Never True 03/24/2024 Within the past 12 months,th e food you bought just didn't last and you didn't have enough money to get more: Never True Transportation Answer Date Recorded In the past 12 months, has l ack of transportation kept you from medical appts, meetings, work or from getting things needed for daily living? No 03/24/2024 Utilities Answer Date Recorded In the past 12 months, has t he electric, gas, oil or water company threatened to shut off services in your home? No 03/24/2024 Depression Answer Date Recorded Patient Health Questionnaire-2 Score 6 03/24/2024 Internet Access Answer Date Recorded Internet Access Q1 Yes 03/24/2024 Internet Access Q2 Not on file 03/24/2024 Comments Unknown Sex and Gender Information Value Date Recorded Sex Assigned at Female 12/26/2021 10:37 AM EDT Legal Sex Female 10:37 AM EDT Gender Identity Female 12/26/2021 10:37 AM EDT Sexual Orientation Straight 12/26/2021 10 :37 AM EDT documented as of this encounter Last Filed Vital Signs Vital Sign Reading Time Taken Comments Blood Pressure 132/79 03/24/2024 11:32 AM EST Pulse 76 03/24/2024 11:32 AM EST Temperature - - Respiratory Rate - - Oxygen Saturation - - Inhaled Oxygen Concentration - - Weight - - Height - - Body Mass Index - - documented in this encounter Progress Notes * Darshan Anne MD - 03/24/2024 11:15 AM EST Subjective Patient ID: Brii Black is a 58 y.o. female who presents for No chief complaint on file.. Hypertension This is a chronic problem. Associated symptoms include palpitations. Pertinent negatives include nochest pain, headaches, peripheral edema or shortness of breath. Review of Systems Respiratory: Negative for shortness of breath. Cardiovascular: Positive for palpitations. Negative for chest pain. Neurological: Negative for headaches. Objective Physical Exam Neurological: General: No focal deficit present. Mental Status: She is oriented to person, place, and time. Psychiatric: Mood and Affect: Mood normal. Behavior: Behavior normal. Assessment/Plan Problem List Items Addressed This Visit Primary hypertension Controlled, but she had last week episode of hypotension/bradycardia, told to lower metoprolol to 25mg, will also order a holter test, keep well hydrated, keep bp log Relevant Medications metoprolol succinate XL (Toprol-XL) 25 MG 24 hr tablet Other Relevant Orders Comprehensive Metabolic Panel Lipid Panel, Standard CBC auto differential TSH W/Reflex to FT4 Severe episode of recurrent major depressive disorder, without psychotic features (CMS/HCC) Will refer to , she lost follow up, no acitve suicidal/homicidal ideas Relevant Orders Referral to Behavioral Health Atrophic spots of skin Patient has family hx of skin cancer wants to get examined, will refer to derm Relevant Orders Referral to [facility] Derm Skin Other Visit Diagnoses Palpitation - Primary Relevant Orders Holter monitor - 24 hour documented in this encounter Miscellaneous Notes * Assessment & Plan Note - Darshan Anne MD - 03/24/2024 12:36 PM ESTAssociated Problem(s): Atrophic spots of skin Patient has family hx of skin cancer wants to get examined, will refer to derm * Assessment & Plan Note - Darshan Anne MD - 03/24/2024 12:32 PM ESTAssociated Problem(s): Severe episode of recurrent major depressive disorder, without psychotic features (CMS/HCC) Will refer to , she lost follow up, no acitve suicidal/homicidal ideas * Assessment & Plan Note - Darshan Anne MD - 03/24/2024 12:31 PM ESTAssociated Problem(s): Primary hypertension Controlled, but she had last week episode of hypotension/bradycardia, told to lower metoprolol to 25mg, will also order a holter test, keep well hydrated, keep bp log documented in this encounter Plan of Treatment Upcoming Encounters Date Type Department Care Team (Late st Contact Info) Description 05/12/2024 2:15 PM EDT Office Visit [facility] MED & PEDS [address] [place] [address] Darshan Bell MD [address] [place] [address] 05/13/2024 11:15 AM EDT Office Visit [facility] MED & PEDS [address] [place] [address] Isabella Choe MD [address] [place] [address] Scheduled Orders Name Type Priority Associated Diagnoses Orde r Schedule Comprehensive Metabolic Panel Lab Routine Primary hypertension Expected: 03/24/2024 (Approximate), Expires: 03/24/2025 Lipid Panel, Standard Lab Routine Primary hypertension Expected: 03/24/2024 (Approximate), Expires: 03/24/2025 CBC auto differential Lab Routine Primary hypertension Expected: 03/24/2024 (Approximate), Expires: 03/24/2025 TSH W/Reflex to FT4 Lab Routine Primary hypertension Expected: 03/24/2024 (Approximate), Expires: 03/24/2025 Holter monitor - 24 hour Cardiac Services Routine Palpitation Expected: 03/24/2024 (Approximate), Expires: 03/24/2026 Scheduled Referrals Name Type Priority Associated Diagnoses Order Schedule Referral to Behavioral Health Outpatient Referral Routine Severe episode of recurrent major depressive disorder, without psychotic features (CMS/HCC) Expected: 03/24/2024 (Approximate), Expires: 03/24/2025 Referral to [facility] Derm Skin Outpatient Referral Routine Atrophic spots of skin Expected: 03/24/2024 (Approximate), Expires: 03/24/2025 documented as of this encounter Visit Diagnoses Diagnosis Palpitation- Primary Palpitations Primary hypertension Unspecified essential hypertension Severe episode of recurrent major depressive disorder, without psychotic features (CMS/HCC) Atrophic spots of skin Striae atrophicae documented in this encounter Additional Health Concerns Assessment Noted Time PHQ-9 Depression Total Score: 13 025 10:36 AM EST documented as of this encounter Care Teams Universal Grinder Set Up Operator Relationship Specialty Start Date End Date Darshan Bell MD [address] [place] [address] PCP - General Internal Medicine 07/06/20 documented as of this encounter
--- OUTSIDE RECORDS SUMMARY | 2024-04-16 13:00 | XMS_ITS | Encounter Summary ---
Author Organization [employer] Address [address] [facility] 7 [place] [address] Care Team Providers Care Automotive Light Mechanic Name Role Phone Darshan Bell MD Primary Care Prov ider Reason for Visit * Reason Onset Date Comments Med Refill 03/21/2024 Encounter Details Date Type Department Care Team ([facility] st Contact Info) Description 03/21/2024 Refill [facility] MEDICINE [address] [place] [address] Darshan Bell MD [address] [place] [address] Social History Tobacco Use Types Packs/Day Years Used Date Smoking Tobacco: Former Cigarettes 0.3 20 2 002 - 2021 Passive Smoke Exposure: Past Smokeless Tobacco: Never Alcohol Use Standard Drinks/Week Comments Not Currently 0 (1 standard drink = 0.6 oz pur e alcohol) Depression Answer Date Recorded Patient Health Questionnaire-9 Score 18 06/26/2023 Patient Health Questionnaire-9 Score 18 06/26/2023 Last PHQ-9: Questionnaire Data Not on file 0 06/26/2023 Housing Stability Answer Date Recorded What is your housing situation today? I have michelle [employer] 12/11/[address] you li ve. Do you have problems with any of the following? None of the above 12/11/2022 Food Insecurity Answer Date Recorded Within the past 12 months, y ou worried that your food would run out before you got money to buy more: Sometimes True 2023 Within the past 12 months,th e food you bought just didn't last and you didn't have enough money to get more: Sometimes True 03/01/2023 Transportation Answer Date Recorded In the past 12 months, has l ack of transportation kept you from medical appts, meetings, work or from getting things needed for daily living? No;Yes, it has kept me from medical appointments or getting medications. 03/01/2023 Utilities Answer Date Recorded In the past 12 months, has t he electric, gas, oil or water company threatened to shut off services in your home? Yes 03/01/2023 Depression Answer Date Recorded Patient Health Questionnaire-2 Score 4 06/26/2023 Comments Unknown Sex and Gender Information Value Date Recorded Sex Assigned at Female 12/26/2021 10:37 AM EDT Legal Sex Female 10:37 AM EDT Gender Identity Female 12/26/2021 10:37 AM EDT Sexual Orientation Straight 12/26/2021 10 :37 AM EDT documented as of this encounter Miscellaneous Notes * Telephone Encounter - Екатерина Adams - 03/21/2024 2:18 PM EST TC from pt requesting medication refill. Medications needing refill : DULoxetine (Cymbalta) [address] capsule NIFEdipine XL (Procardia XL) 60 MG 24 hr tablet To be sent to: [facility]/pharmacy #[id number] documented in this encounter Plan of Treatment Upcoming Encounters Date Type Department Care Team (Late st Contact Info) Description 05/12/2024 2:15 PM EDT Office Visit [facility] MED & PEDS [address] [place] [address] Darshan Bell MD [address] [place] [address] 05/13/2024 11:15 AM EDT Office Visit [facility] MED & PEDS [address] [place] [address] Isabella Choe MD [address] [place] [address] documented as of this encounter Visit Diagnoses Not on filedocumented in this encounter Additional Health Concerns Assessment Noted Time PHQ-9 Depression Total Score: 18 024 12:23 PM EDT documented as of this encounter Care Teams Automotive Light Mechanic Relationship Specialty Start Date End Date Darshan Bell MD [address] [place] [id number] PCP - General Internal Medicine 07/06/20 documented as of this encounter
--- OUTSIDE RECORDS SUMMARY | 2024-04-16 13:00 | XMS_ITS | Clinical Summary ---
Author Organization [employer] Address 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 fluticasone (Flonase) 50 MCG/ACT nasal sprayIndications: COVID-19 USE 2 SPRAYS INTO EACH NOSTRIL IN THE MORNING SHAKE GENTLY/PRIM E BEFORE 1ST USE&CLEAN TIP/REPLACE CAP 48 mL 11 05/24/19 24 Active chlorthalidone (Hygroton) 25 MG tablet Take 1 tablet (25 mg) by mouth in the morning. 90 tablet 3 06/04/19 24 025 Active atorvastatin (Lipitor) 40 MG tabletIndications :Mixed hyperlipidemia Take 1 tablet (40 mg) by mouth Once per day. 90 tablet 3 10/15/19 24 025 Active hydrOXYzine HCl (Atarax) 25 MG tablet Take 1 tablet (25 mg) by mouth if needed in the morning, at noon, and at bedtime for anxiety. 90 tablet 3 02/11/20 24 025 Active lisinopril 40 MG tablet TAKE 1 TABLET BY MOUTH EVERY DAY IN THE MORNING 90 tablet 1 03/03/19 25 Active SUMAtriptan (Imitrex) 25 MG tabletIndications :Migraine without aura and without status migrainosus, not intractable Take 1 tablet (25 mg) by mouth if needed for migraine (headaches) for up to 1 dose. May repeat dose once in 2 hours if no relief. Do not exceed 2 doses in 24 hours. 9 tablet 1 03/11/19 25 Active DULoxetine (Cymbalta) [address] capsule Take 2 capsules (60 mg) by mouth Once per day. Do not crush or chew. 180 capsule 1 03/21/19 25 Active NIFEdipine XL (Procardia XL) 60 MG 24 hr tablet TAKE 1 TABLET BY MOUTH IN THE MORNING. DO NOT CRUSH, CHEW, OR SPLIT. 90 tablet 1 03/21/19 25 Active metoprolol succinate XL (Toprol-XL) 25 MG 24 hr tabletIndications :Primary hypertension Take 1 tablet (25 mg) by mouth Once per day. Do not crush or chew. 90 tablet 3 03/24/19 25 026 Active Omeprazole 20 MG tablet delayed-release TAKE 1 TABLET BY MOUTH EVERY DAY 90 tablet 3 03/25/19 25 Active traZODone (Desyrel) 50 MG tablet TAKE 1 TABLET BY MOUTH EVERYDAY AT BEDTIME 30 tablet 2 04/08/19 25 Active DULoxetine (Cymbalta) [address] capsule Take 2 capsules (60 mg) by mouth Once per day. Do not crush or chew. 173 capsule 1 10/08/19 24 025 Discontinued(R eorder (will not trigger notification to Pharmacy)) metoprolol succinate XL (Toprol-XL) 50 MG 24 hr tabletIndications :Primary hypertension Take 1 tablet (50 mg) by mouth Once per day. Do not crush or chew. 90 tablet 3 10/15/19 24 025 Discontinued Omeprazole 20 MG tablet delayed-release Take 1 tablet by mouth Once per day. 90 tablet 3 10/18/19 24 025 Discontinued(R eorder (will not trigger notification to Pharmacy)) NIFEdipine XL (Procardia XL) 60 MG 24 hr tablet TAKE 1 TABLET BY MOUTH IN THE MORNING. DO NOT CRUSH, CHEW, OR SPLIT. 90 tablet 1 11/29/19 24 025 Discontinued(R eorder (will not trigger notification to Pharmacy)) traZODone (Desyrel) 50 MG tablet TAKE 1 TABLET BY MOUTH AT BEDTIME 30 tablet 2 01/11/20 24 025 Discontinued(R eorder (will not trigger notification to Pharmacy)) Omeprazole 20 MG tablet delayed-release Take 1 tablet (20 mg) by mouth Once per day. 90 tablet 3 03/24/19 25 025 Discontinued traZODone (Desyrel) 50 MG tablet Take 2 tablets (100 mg) by mouth at bedtime. 30 tablet 2 03/24/19 25 025 Discontinued Active Problems Problem Noted Date Diagnosed Date Atrophic spots of skin 03/24/2024 Assessment & Plan (03/24/2024 12:36 PM EST): Patient has family hx of skin cancer wants to get examined, will refer to derm Amblyopia, right eye 01/15/2024 Severe episode of recurrent major depressive disorder, without psychotic features 03/05/2023 Assessment & Plan (03/24/2024 12:32 PM EST): Will refer to , she lost follow up, no acitve suicidal/homicidal ideas Assessment & Plan (06/21/2023 10:45 AM EDT): Improved symptoms with cymbalta, continue with hydroxyzine as needed, no suicidal/homicidal ideas Generalized anxiety disorder 03/01/2023 Assessment & Plan (04/17/2023 10:35 AM EST): Refers hydroxyzine has improved her anxiety but has been taking it daily, will start on cymbalta, and follow up in 1 month, no suicidal/homicidal ideas Assessment & Plan (03/01/2023 11:01 AM EST): Patient lost her job recently since has been experiencing anxiety episode, she has follow up with , will provide hydroxyzine risk vs benefits discussed, will follow up in 1 month, denied suicidal/homicidal ideas Primary hypertension 08/25/2022 Assessment & Plan (03/24/2024 12:31 PM EST): Controlled, but she had last week episode of hypotension/bradycardia, told to lower metoprolol to 25mg, will also order a holter test, keep well hydrated, keep bp log Assessment & Plan (10/15/2023 2:21 PM EDT): Controlled, continue current treatment, lkeep low sodium diet and exercise as tolerated Assessment & Plan (06/21/2023 10:26 AM EDT): Controlled, continue current medical therapy, low sodium diet and exercise as tolerated Assessment & Plan (04/17/2023 10:33 AM EST): Controlled, continue same treatment, new labs were ordered Assessment & Plan (12/20/2022 10:22 AM EDT): Controlled, patient on lisinopril 40mg, chlorthalidone 25mg, nifedipine 60mg and toprol 50mg, continue low sodium diet and exercise as tolerated, follow up in 3 months Assessment & Plan (09/26/2022 9:53 AM EDT): Controlled, reinforced low sodium diet and exercise as tolerated, labs discussed, will follow up in 3 months with bp log Assessment & Plan (08/25/2022 9:37 AM EDT): Not at target, today was 133/89 but previous results as follow 162/74-145/90-132/85, will increase nifedipine to 60mg, reinforced low sodium diet and exercise as tolerated, will follow up in 1 month with bp log Mixed hyperlipidemia 08/25/2022 Assessment & Plan (10/15/2023 2:22 PM EDT): Will increase atorvastatin to 40mg, continue low cholesterol diet Assessment & Plan (06/21/2023 10:45 AM EDT): On atorvastatin 20mg, will send new labs for guidance of therapy Assessment & Plan (04/17/2023 10:34 AM EST): On atorvastatin, will order new labs for guidance of therapy Assessment & Plan (08/25/2022 9:30 AM EDT): On atorvastatin, will order new labs for guidance of therapy Encounter for screening mamm ogram for malignant neoplasm of breast 08/25/2022 Assessment & Plan (08/25/2022 9:32 AM EDT): Patient was scheduled for a mammogram but missed appointment, she will call to reschedule Screening for colon cancer 08/25/2022 Assessment & Plan (12/20/2022 10:22 AM EDT): Will send cologuard, risk vs benefits were discussed Assessment & Plan (08/25/2022 9:32 AM EDT): Patient saw gi, pending procedure date, she will call to verify Resolved Problems Problem Noted Date Diagnosed Date Resolved Date Right eye symptoms 10/15/2023 Assessment & Plan (10/15/2023 2:24 PM EDT): Patient has no vision onher right eye since , but lately she refers has been having pain and associated headaches, will order a ct scan and will refer to optometry for evaluation Encounters * This document contains information received from the source organization and may not represent a complete record from that organization. Date Type Department Care Team Description 04/05/2024 Refill [facility] [address] [place] [address] Darshan Bell MD 03/24/2024 11:15 AM EST Telemedicine [facility] [address] [place] [address] Darshan Bell MD Palpitation (Primary Dx); Primary hypertension; Severe episode of recurrent major depressive disorder, without psychotic features (CMS/HCC); Atrophic spots of skin 03/24/2024 Refill [facility] [address] [place] [address] Darshan Bell MD 03/24/2024 Travel 03/21/2024 Refill [facility] [address] [place] [address] Darshan Bell MD 03/10/2024 Refill [facility] [address] [place] [address] Darshan Bell MD Migraine without aura and without status migrainosus, not intractable 03/05/2024 Telephone [facility] [address] [place] [address] Darshan Bell MD Med Refill 03/05/2024 Telephone [facility] [address] [place] [address] Darshan Bell MD Nurse Triage 03/03/2024 Refill [facility] [address] [place] [address] Darshan Bell MD 02/14/2024 Outside Procedure [facility] [address] [place] [address] Telma Roberts, OD Presbyopia (Primary Dx) 02/11/2024 Refill [facility] [address] [place] [address] Darshan Bell MD 02/07/2024 2:00 PM EST Office Visit [facility] [address] [place] [address] Telma Roberts, OD Hyperopia of both eyes (Primary Dx) 01/15/2024 1:45 PM EST Office Visit [facility] [address] [place] [address] Zina Porter, OD Refractive amblyopia of right eye (Primary Dx); Hyperopia of both eyes 01/15/2024 Travel from Last 3 Months Social History Tobacco Use Types Packs/Day Years Used Date Smoking Tobacco: Former Cigarettes 0.3 20 2 002 - 2022 Passive Smoke Exposure: Past Smokeless Tobacco: Never Tobacco Cessation:Counseling Given: Not Answered Alcohol Use Standard Drinks/Week Comments Not Currently [...] Orientation Straight 12/26/2021 10 :37 AM EDT Last Filed Vital Signs Vital Sign Reading Time Taken Comments Blood Pressure 132/79 03/24/2024 11:32 AM EST Pulse 76 03/24/2024 11:32 AM EST Temperature 36.8 ??C (98.2 ??F) 11/17/2022 1:17 PM ED T Respiratory Rate 20 11/17/2022 1:17 PM EDT Oxygen Saturation 97% 11/17/2022 1:17 PM EDT Inhaled Oxygen Concentration - - Weight 67.5 kg (148 lb 12.8 oz) 11/17/2022 1:17 PM EDT Height 162.6 cm (5' 4 ) 11/17/2022 1:17 PM EDT Body Mass Index 25.54 11/17/2022 1:17 PM EDT Plan of Treatment Upcoming Encounters Date Type Department Care Team (Late st Contact Info) Description 05/12/2024 2:15 PM EDT Office Visit [facility] [address] [place] [address] Darshan Bell MD [address] [place] [address] 05/13/2024 11:15 AM EDT Office Visit [facility] [address] [place] [address] Isabella Choe MD [address] [place] [address] Health Maintenance Due Date Last Done Comments CT Colonography 1965 Colonoscopy 1965 FIT 1965 FOBT 1965 Sigmoidoscopy 1965 Alcohol/Substance Use Screening 1975 DTaP/Tdap/Td Vaccines (1 - Tdap) 1982 Pneumococcal Vaccine: 50+ Years (1 of 1 - PCV) 2013 Zoster Vaccines (1 of 2) 2013 COVID-19 Vaccine (3 - season) 2023 08/21/2020, 07/31/2020 Influenza Vaccine (#1) 2023 SDOH Screening 03/01/2024 03/01/2023 Pap Smear 05/31/2024 05/31/2021 Depression Monitoring (PHQ-9) 09/21/2024 03/24/2024, 03/24/2024 Tobacco Screening 01/14/2025 01/15/2024 Depression Screening 03/24/2025 03/24/2024, 03/24/19 25 Mammogram 05/14/2025 05/15/2023 Colorectal Cancer Screening 01/02/2026 FIT DNA/Cologuard 01/02/2026 01/02/2023 Cervical Cancer Screening 05/31/2026 HPV/Cotest 05/31/2026 05/31/2021 Lipid Panel 07/02/2028 07/03/2023, 0702/2022, 09/16/2021, Additional history exists RSV Patients and Patients Aged 60 years or older (1 - 1-dose 75+ series) 2038 HIV Screening Completed 09/16/2021, 06/25/2020 Hepatitis C Screening Completed 09/25/2022 , 09/16/2021, 09/16/2021 HIB Vaccines Aged Out No longer eligi ble based on patient's age to complete this topic HPV Vaccines Aged Out No longer eligi ble based on patient's age to complete this topic Hepatitis A Vaccines Aged Out No long er eligible based on patient's age to complete this topic Hepatitis B Vaccines Aged Out No long er eligible based on patient's age to complete this topic IPV Vaccines Aged Out No longer eligi ble based on patient's age to complete this topic Meningococcal Vaccine Aged Out No art flora eligible based on patient's age to complete this topic RSV under 20 months Aged Out No longe r eligible based on patient's age to complete this topic Rotavirus Vaccines Aged Out No longer eligible based on patient's age to complete this topic Procedures Procedure Name Priority Date/Time Associated Diagnosis Comments LIPID PANEL, STANDARD Routine 07/03/2023 10:58 AM EDT Mixed hyperlipidemia BI MAMMOGRAM SCREENING TOMOSYNTHESIS BILATERAL Routine 05/15/2023 12:01 PM EDT LAB COLOGUARD?? COLON CANCER SCREEN Routine 01/02/2023 10:30 AM EST Screening for colon cancer HEPATITIS C ANTIBODY REFLEX Routine 09/25/2022 10:18 AM EDT HIV 1/2 ANTIGEN/ANTIBODY, FOURTH GENERATION W/RFL Routine 09/16/2021 9:49 AM EDT THINPREP IMAGING PAP AND HPV MRNA E6/E7, WITH CT/NG, TRICHOMONAS Routine 05/31/2021 3:20 PM EDT from Last 3 Months or Most Recently Relevant to Health Maintenance Results * (ABNORMAL) Lipid Panel, Standard (07/03/2023 10:58 AM EDT) Triglycerides 153(H) <150 mg/dL [facility] Comment:Desirable Triglyceri de: less than 150 mg/dLBorderline High Triglyceride 150-199 mg/dLHigh Triglyceride: 200-499 mg/dLVery High Triglyceride: greater than or equal to 5OO mg/dL Cholesterol 201(H) <200 mg/dL [facility] Comment:Desirable Cholestero l: less than 200 mg/dLBorderline High Cholesterol: 200-239 mg/dLHigh Cholesterol: greater than 239 mg/dL LDL Cholesterol Calculated 121(H) <100 mg/dL [facility] Comment:Desirable LDL: less than 100 mg/dLNear Optimal/Above Optimal LDL: 110- 129 mg/dLBorderline High LDL: 130-159 mg/dLHigh LDL: 160-189 mg/dLVery High LDL: greater than or equal to 190 mg/dL HDL Cholesterol 50 >40 mg/dL [facility] Comment:Desirable HDL: great er than 40 mg/dL Note: This HDL assay may give artificially low results in patients with liver disease. Blood Venous blood specimen / Unknown 07/03/2023 10:58 AM EDT 07/03/2023 2:17 PM EDT Darshan Anne MD LAB BLOOD ORDERABL ES Final Result [facility] [address] [place] [phone] * BI Mammogram Screening Tomosynthesis Bilateral (05/15/2023 12:01 PM EDT) Anatomical Region Laterality Modality Breast Bilateral Mammography 05/15/2023 12:0 1 PM EDT Narrative 06/06/2023 12:28 AM EDT ? [facility] [place] ? [address] ?[place] [address] ? Mammography Report ? Signed ? Patient: Gannon Black,Brii ?MR#: ?? [id number] ? : 1965 ?Acct:[id number] ? Age/Sex: 58 / F ?ADM Date: 03/19/24 ? Loc: HO.MAMMO ? Attending Dr: Darshan Anne MD ? Ordering Physician: Darshan Bell MD ?Res ?? ults: 1Negative ? Date of Service: 05/15/23 ?Follow Up: 1 Year From Orig ?? inal Mammogram ? Procedure(s): MM tomosynthesis screening BI ?? Accession Number(s): [id number] ? cc: Darshan Bell MD ? EXAMINATION: ?? MM SCREENING DIGITAL BREAST TOMOSYNTHESIS, BILATERAL ? CLINICAL INFORMATION: ? Screening. Asymptomatic. ? COMPARISON: ?? Mammography: This study is compared with prior exams dating back to ?? 2021. ? TECHNIQUE: ?? Digital breast tomosynthesis is performed in both the craniocaudal and ?? mediolateral oblique views along with computer-aided detection (CAD). ?? Synthesized 2D images are generated from the tomosynthesis. ? FINDINGS: ?? The breasts are heterogeneously dense, which may obscure small masses ?? (ACR BI-RADS breast composition Category c). ? There are no significant masses, abnormal calcifications, or other ?? abnormalities. ? MM/MM tomosynthesis screening BI ?? IMPRESSION: ?? No mammographic evidence of malignancy. ? ASSESSMENT: ? BI-RADS BI-RADS 1 - Negative ? RECOMMENDATION: ?? Routine annual mammography screening. ? 1 year F/U ? This examination should not preclude the clinical evaluation of a ?? suspicious palpable abnormality. ? This patient's information was entered into a reminder system with a ?? target due date for their next mammogram. ? Dictated By: ?Tawana Paul MD ? Signed By: ?<Electronically signed by Tawana Paul MD in OV> ? 06/06/23 002 ? DD/ 1201 ? TD/TT: ? Employment Appeals Examiner: ? Procedure Note Donotmónicainterpreter, Image - 06/06/2023 [facility] [address] [place] [address] Mammography Report Signed Patient: Love Santiago#: [id number] : 1965Acct:[id number] Age/Sex: 58 / FADM Date: 05/15/23 Loc: HO.MAMMO Attending Dr: Darshan Anne MD Ordering Physician: Darshan Bell ults: 1Negative Date of Service: 05/15/23Follow Up: 1 Year From Orig inal Mammogram Procedure(s): MM tomosynthesis screening BI Accession Number(s): [id number] cc: Darshan Bell MD EXAMINATION: MM SCREENING DIGITAL BREAST TOMOSYNTHESIS, BILATERAL CLINICAL INFORMATION: Screening. Asymptomatic. COMPARISON: Mammography: This study is compared with prior exams dating back to 2021. TECHNIQUE: Digital breast tomosynthesis is performed in both the craniocaudal and mediolateral oblique views along with computer-aided detection (CAD). Synthesized 2D images are generated from the tomosynthesis. FINDINGS: The breasts are heterogeneously dense, which may obscure small masses (ACR BI-RADS breast composition Category c). There are no significant masses, abnormal calcifications, or other abnormalities. MM/MM tomosynthesis screening BI IMPRESSION: No mammographic evidence of malignancy. ASSESSMENT: BI-RADS BI-RADS 1 - Negative RECOMMENDATION: Routine annual mammography screening. 1 year F/U This examination should not preclude the clinical evaluation of a suspicious palpable abnormality. This patient's information was entered into a reminder system with a target due date for their next mammogram. Dictated By: Tawana Paul MD Signed By: <Electronically signed by Tawana Paul MD in OV> 06/06/23 0024 DD/ 1201 TD/TT: Employment Appeals Examiner: Darshan Anne MD IMG BI PROCEDURES Final Result * Cologuard?? colon cancer screening (01/02/2023 10:30 AM EST) Cologuard Result Negative Negative 01/16/20 5:43 PM EST [facility] (CLIA #:[id number]) Comment: NEGATIVE TEST RESULT. A negative Cologuard result indicates a low likelihood that a colorectal cancer (CRC) or advanced adenoma (adenomatous polyps with more advanced pre-malignant features) ??is present. The chance that a person with a negative Cologuard test has a colorectal cancer is less than 1 in 1500 (negative predictive value >99.9%) or has an ??advanced adenoma is less than ??5.3% (negative predictive value 94.7%). These data are based on a prospective cross-sectional study of 10,000 individuals at average risk for colorectal cancer who were screened with both Cologuard and colonoscopy. (Dea Willard. et al, N Engl J Med 2014;370(14):1286- 1297) The normal value (reference range) for this assay is negative. COLOGUARD RE-SCREENING RECOMMENDATION: Periodic colorectal cancer screening is an important part of preventive healthcare for asymptomatic individuals at average risk for colorectal cancer. ??Following a negative Cologuard result, the [place] [employer] Society and U.S. Multi-Society Task Force screening guidelines recommend a Cologuard re-screening interval of 3 years. References: [place] [employer] Guideline for Colorectal Cancer Screening: https://www.cancer.org/cancer/crydg-govynr-zoderl/wyrdtzwzq-kdjkbuxsr-qwhjfxo/ac s-rec ommendations.html.; Allen BLOUNT, Donny RUBIO, Nate MaddenK, Colorectal Cancer Screening: Recommendations for Physicians and Patients from the U.S. Multi-Society Task Force on Colorectal Cancer Screening , Am J Gastroenterology 2017; 112:9618-0756. TEST DESCRIPTION: Composite algorithmic analysis of stool DNA-biomarkers with hemoglobin immunoassay. ?? Quantitative values of individual biomarkers are not reportable and are not associated with individual biomarker result reference ranges. Cologuard is intended for colorectal cancer screening of adults of either sex, 45 years or older, who are at average-risk for colorectal cancer (CRC). Cologuard has been approved for use by the U.S. FDA. The performance of Cologuard was established in a cross sectional study of average-risk adults aged 50-84. Cologuard performance in patients ages 45 to 49 years was estimated by sub-group analysis of near-age groups. Colonoscopies performed for a positive result may find as the most clinically significant lesion: colorectal cancer [4.0%], advanced adenoma (including sessile serrated polyps greater than or equal to 1cm diameter) [20%] or non- advanced adenoma [31%]; or no colorectal neoplasia [45%]. These estimates are derived from a prospective cross-sectional screening study of 10,000 individuals at average risk for colorectal cancer who were screened with both Cologuard and colonoscopy. (Dea Brunson et al, N Engl J Med 2014;370(14):0016-0848.) Cologuard may produce a false negative or false positive result (no colorectal cancer or precancerous polyp present at colonoscopy follow up). A negative Cologuard test result does not guarantee the absence of CRC or advanced adenoma (pre-cancer). The current Cologuard screening interval is every 3 years. ([place] [employer] and U.S. Multi-Society Task Force). Cologuard performance data in a 10,000 patient pivotal study using colonoscopy as the reference method can be accessed at the following location: www.[employer]$ [employer]/results. Additional description of the Cologuard test process, warnings and precautions can be found at www.[employer].com. Stool specimen (specimen) 01/02/2023 10:30 AM EST 01/03/2023 8:57 PM EST Darshan Anne MD LAB MOLECULAR DIAG NOSTICS ORDERABLES Final Result [facility] (CLIA #:[id number]) [place] [address], * Hepatitis C Antibody Reflex (09/25/2022 10:18 AM EDT) Hepatitis C Antibody Nonreactive Nonreactive [facility] Comment:Antibodies to HCV no t detected; does not exclude early acuteHCV infection. 09/25/2022 10:1 8 AM EDT 09/25/2022 2:21 PM EDT us Abiola Floyd MD LAB BLOOD ORDERABLES Final Re sult [facility] [address] [place] [address] [phone] * HIV 1/2 ANTIGEN/ANTIBODY,FOURTH GENERATION W/RFL (09/16/2021 9:49 AM EDT) HIV-1/2 ANTIGEN AND ANTIBODIES, 4TH GENERATION W/ REFLEX NON-REACT SYED NON-REACT SYED [facility] Comment: HIV-1 antigen and HIV-1/HIV-2 antibodies were not detected. There is no laboratory evidence of HIV infection. ?? PLEASE NOTE: This information has been disclosed to you from records whose confidentiality may be protected by state law. ??If your state requires such protection, then the state law prohibits you from making any further disclosure of the information without the specific written consent of the person to whom it pertains, or as otherwise permitted by law. A general authorization for the release of medical or other information is NOT sufficient for this purpose. ? For additional information please refer to http://education.[employer].Volance/faq/YRK372 (This link is being provided for informational/ educational purposes only.) ? The performance of this assay has not been clinically validated in patients less than 2 years old. ?? 09/16/2021 9:49 AM EDT us Kori ROBERTO LAB BLOOD ORDERABLES Halie l Result [facility] [address] [place] [address], [place] * THINPREP TIS PAP AND HPV mRNA E6/E7, CT/NG, TRICH (05/31/2021 3:20 PM EDT) Chlamydia trachomatis RNA, TMA, Urogenital NOT DETECTED NOT DETECTED [facility] Clinical Information: None given [facility] COMMENT SEE [facility] Comment: The analytical performance characteristics of this assay, when used to test SurePath(TM) specimens have been determined by [employer]. The modifications have not been cleared or approved by the FDA. This assay has been validated pursuant to the CLIA regulations and is used for clinical purposes. ?? For additional information, please refer to https://[employer]/faq/QII394 (This link is being provided for information/ educational purposes only.) ?? COMMENT SEE COMMENT [facility] Comment: EXPLANATORY NOTE: ? The Pap is a screening test for cervical cancer. It is ?? not a diagnostic test and is subject to false negative ?? and false positive results. It is most reliable when a ?? satisfactory sample, regularly obtained, is submitted ?? with relevant clinical findings and history, and when ?? the Pap result is evaluated along with historic and ?? current clinical information. ?? COMMENT: This Pap test has been evaluated with computer assisted technology. [facility] Explosive Operator Fuse: SEE COMMENT [facility] Comment: VITAEL, CT(ASCP) CT screening location: [address] ??[id number] HPV nRNA E6/E7 Not Detected Not Detected [facility] Comment: Methodology: Binder Folder Operator-Mediated Amplification This assay detects E6/E7 viral messenger RNA (mRNA) from 14 high-risk HPV types (16,18,31,33,35,39,45,51,52,56,58,59,66,68). ? The analytical performance characteristics of this assay have been determined by [employer]. The modifications have not been cleared or approved by the FDA. This assay has been validated pursuant to the CLIA regulations and is used for clinical purposes. ?? For additional information, please refer to http://[employer]/faq/NIZ117g2 (This link if provided for information/ educational purposes only.) Interpretation/Re sult: Negative for intraepithelial lesion or malignancy. [facility] LMP: NONE GIVEN [facility] Neisseria gonorrhoeae RNA, TMA, Urogenital NOT DETECTED NOT DETECTED [facility] Prev. BX: NONE GIVEN [facility] Prev. PAP: NONE [facility]IVEN [facility] SOURCE: None given [facility] Statement Of Adequacy: SEE COMMENT [facility] Comment: Satisfactory for evaluation. Endocervical/transformation zone component present. Trichomonas vaginalis, QL, TMA, PAP Vial NOT DETECTED NOT DETECTED [facility] Comment: The analytical performance characteristics of this assay have been determined by [employer]. The modifications have not been cleared or approved by the FDA. This assay has been validated pursuant to the CLIA regulations and is used for clinical purposes. ?? For additional information, please refer to http://education.[employer]/ faq/Trichomonastma (This link is being provided for information/ educational purposes only.) ?? 05/31/2021 3:20 PM EDT Kori ROBERTO LAB PATHOLOGY ORDERABLES Final Result [facility] [address] from Last 3 Months or Most Recently Relevant to Health Maintenance Insurance [facility] C3 Care Teams Commercial Construction Estimator Relationship Specialty Start Date End Date PichardoDarshan Hardy MD [address] [place] [address] KAITLYN Croft [id number] PCP - General Internal Medicine 07/06/20
--- OUTSIDE RECORDS SUMMARY | 2024-04-16 13:00 | XMS_ITS | Encounter Summary ---
Author Organization [employer] Address [address] [facility] [address] [place] [address] Care Team Providers Care Athletic Equipment Custodian Name Role Phone Darshan Bell MD Primary Care Prov ider Encounter Details Date Type Department Care Team (Latest Contact Info) Description 03/24/2024 Travel Social History Tobacco Use Types Packs/Day Years [...] Description 05/12/2024 2:15 PM EDT Office Visit [facility] [address] [place] [address] Darshan Bell MD [address] [place] [address] 05/13/2024 11:15 AM EDT Office Visit [facility] [address] [place] [address] Isabella Choe MD [address] [place] [address] documented as of this encounter Visit Diagnoses Not on filedocumented in this encounter Additional Health Concerns Assessment Noted Time PHQ-9 Depression Total Score: 13 025 10:36 AM EST documented as of this encounter Care Teams Athletic Equipment Custodian Relationship Specialty Start Date End Date Darshan Bell MD [address] [place] [address] PCP - General Internal Medicine 07/06/20 documented as of this encounter
--- OUTSIDE RECORDS SUMMARY | 2024-04-16 13:00 | XMS_ITS | Encounter Summary ---
Author Organization [employer] Address [address] [facility] [address] [place] [address] Care Team Providers Care Energy Systems Engineer Name Role Phone Darshan Bell MD Primary Care Prov ider Reason for Visit * Reason Comments Med Change Request Encounter Details Date Type Department Care Team ([facility] Contact Info) Description 03/24/2024 Refill [facility] [address] [place] [address] Darshan Bell MD [address] [place] [address] Social History Tobacco Use Types Packs/Day Years [...] Description 05/12/2024 2:15 PM EDT Office Visit [facility] [address] [place] [address] Darshan Bell MD [address] [place] [address] 05/13/2024 11:15 AM EDT Office Visit [facility] [address] [place] [address] Isabella Choe MD [address] [place] [address] documented as of this encounter Visit Diagnoses Not on filedocumented in this encounter Additional Health Concerns Assessment Noted Time PHQ-9 Depression Total Score: 13 025 10:36 AM EST documented as of this encounter Care Teams Energy Systems Engineer Relationship Specialty Start Date End Date Darshan Bell MD [address] [place] [address] PCP - General Internal Medicine 07/06/20 documented as of this encounter
--- OUTSIDE RECORDS SUMMARY | 2024-04-16 13:00 | XMS_ITS | Encounter Summary ---
Author Organization [employer] Address [address] [facility] [address] [place] [address] Care Team Providers Care Senior Front End Engineer Name Role Phone Darshan Bell MD Primary Care Prov ider Encounter Details Date Type Department Care Team (Late Contact Info) Description 07/19/[address] [facility] [address] [place] [id number] Darshan Bell MD [address] [place] [address] Social History Tobacco Use Types Packs/Day Years [...] Description 05/12/2024 2:15 PM EDT Office Visit [facility] [address] [place] [address] Darshan Bell MD [address] [place] [address] 05/13/2024 11:15 AM EDT Office Visit [facility] [address] [place], [place] [phone] Isabella Choe MD [address] [place] [address] documented as of this encounter Visit Diagnoses Not on filedocumented in this encounter Care Teams Senior Front End Engineer Relationship Specialty Start Date End Date Darshan Bell MD [address] [place] [address] PCP - General Internal Medicine 07/06/20 documented as of this encounter
--- OUTSIDE RECORDS SUMMARY | 2024-04-16 13:00 | XMS_ITS | Encounter Summary ---
Author Organization [employer] Address [address] [facility] [address] [place] [address] Care Team Providers Care Deportation Examiner Name Role Phone Darshan Bell MD Primary Care Prov ider Reason for Visit * Reason Comments Med Refill Encounter Details Date Type Department Care Team ([facility] Contact Info) Description 04/05/[address] [facility] [address] [place] [address] Darshan Bell MD [address] [place] [address] Social History Tobacco Use Types Packs/Day Years [...] 05/12/2024 2:15 PM EDT Office Visit [facility] [address] [place] [address] Darshan Bell MD [address] [place] [address] 05/13/2024 11:15 AM EDT Office Visit [facility] [address] [place] [address] Isabella Choe MD [address] [place] [address] documented as of this encounter Visit Diagnoses Not on filedocumented in this encounter Additional Health Concerns Assessment Noted Time PHQ-9 Depression Total Score: 13 025 10:36 AM EST documented as of this encounter Care Teams Deportation Examiner Relationship Specialty Start Date End Date Darshan Bell MD [address] [place] [address] PCP - General Internal Medicine 07/06/20 documented as of this encounter
[2024-04-16 14:21] LABS: MANUAL DIFF FLAG NO
[2024-04-16 14:27] LABS: Basophils Percent Auto 0.5 % (0-2); Eosinophils Absolute Auto 0.2 X10*3/uL (0.0-0.4); Eosinophils Percent Auto 2.9 % (0-4); Hematocrit 35.7 % (37.0-47.0); Imm Gran Abs Auto 0.03 X10*3/uL (0.00-0.03); Imm Gran Pct Auto 0.5 % (0.0-0.4); Lymphocytes Absolute Auto 1.9 X10*3/uL (1.2-4.9); Lymphocytes Percent Auto 30.3 % (20-40); Mean Corpuscular HGB Conc 33.6 g/dl (31.0-35.0); Mean Corpuscular Hemoglobin 29.4 pg (27.0-33.0); Mean Corpuscular Volume 87.5 fL (80.0-98.0); Mean Platelet Volume 10.3 fL (9.4-12.3); Monocytes Absolute Auto 0.4 X10*3/uL (0.1-1.2); Monocytes Percent Auto 5.7 % (2-11); Neutrophils Absolute Auto 3.7 x10*3/uL (2.0-8.3); Neutrophils Percent Auto 60.1 % (45-73); Platelet Count 242 X10*3/uL (160-400); Red Blood Count 4.08 X10*6/uL (4.20-5.50); Red Cell Distribution Width 14.2 % (11.0-16.0); White Blood Count 6.2 X10*3/uL (4.8-10.8)
[2024-04-16 14:51] LABS: Alanine Aminotransferase 54 U/L (0-31); Albumin Level 4.3 g/dL (3.5-5.0); Alkaline Phosphatase 117 U/L (39-117); Anion Gap 14 (12-20); Aspartate Amino Transferase 36 U/L (5-31); Bilirubin Total 0.2 mg/dL (0.0-1.0); Blood Urea Nitrogen 31 mg/dL (9-16); Calcium 9.4 mg/dL (8.4-10.2); Carbon Dioxide 25 mmol/L (22-29); Chloride 105 mmol/L (96-108); Cholesterol 277 mg/dL (<200); Estimated Glomerular Filt Rate 47; Glucose Random 147 mg/dL (60-115); HDL Cholesterol 50 mg/dL (>40); LDL Cholesterol Calculated 178 mg/dL (<100); Potassium 4.3 mmol/L (3.3-5.1); Sodium 140 mmol/L (135-145); Total Protein 7.9 g/dL (6.5-8.0); Triglycerides 248 mg/dL (<150)
[2024-04-16 14:58] LABS: TSH reflex Free T4 2.19 uIU/mL (0.32-4.0)
== END 2024-04-16 12:45 | disposition home or self-care (01) ==
LOC: HO.CHCLDS 12:44
PROVIDERS: Visit Provider Internal Medicine
DX: I10 Essential (primary) hypertension (principal)
CPT/HCPCS: 36415; 80053; 80061; 84443; 85025

== ENCOUNTER → 2024-05-02 13:00 | Outpatient (REF) | payer MEDICAID, SELFPAY | LOC: HO.CARD 13:00 | PROVIDERS: PCP Internal Medicine; Visit Provider Internal Medicine | DX: R00.2 Palpitations (principal) | CPT/HCPCS: 93225 ==

== ENCOUNTER → 2024-05-02 13:07 | Outpatient (BNV) | payer MEDICAID, SELFPAY | PROVIDERS: PCP Internal Medicine; Visit Provider Internal Medicine Cardiovascular Disease | DX: R00.1 Bradycardia, unspecified (principal) | CPT/HCPCS: 93227 ==